=== PATIENT | male | born 1950 | race Caucasian/White ===

== ENCOUNTER → 2017-01-14 | Outpatient (CLI) | payer BC ==
[~2017-01-14] MED LIST: ACET-783 PO; GADOBUTROL 10mMol/10ml INJECTION IV ONE; NORMAL SALINE 50 ML IV ONE; OMEP20TA11 PO; SALINE FLUSH 10ml SYRINGE ONE; [UNRECOGNIZED DRUG - CODE] PO
--- NOTE | 2017-01-15 08:38 | DI ---
Indication: ITS.REASON: K83.0; K51.00 PROCEDURE: MRI ABDOMEN W/WO CONTRAST and MRCP abdomen: Encounter: Initial Comparison: Abdomen MRI dated January 11, 2016 Technique: Multiplanar multisequence MR imaging of the abdomen was performed with and without contrast. Coronal 3-D respiratory gated thick slab T2 MRCP imaging of the biliary tree was also performed with three-dimensional reconstructions. Contrast: 10 mL Gadavist Findings: MRCP: The prior left hepatic bile duct dilatation has improved. No new dilated intra or extrahepatic bile ducts. The stricturing in the bile ducts is less prominent on today's study. No evidence of common duct filling defect or stone. The main pancreatic duct is slightly prominent but unchanged. Abdomen: Liver shows no enhancing mass. Contours normal. Mild residual bile duct dilatation in the lateral left lobe of the liver which is improved from the comparison study. The spleen, pancreas, bilateral adrenals and kidneys are within normal limits. Adrenal glands appear normal. Visualized bowel loops are unremarkable. Impression: MRCP: Interval improvement in the left-sided intrahepatic bile duct dilatation. Changes of PSC are less evident on today's study. 2. MRI abdomen: No acute abnormality seen. .
== END ==
LOC: IMA 18:28
PROVIDERS: ATTEND Nurse Practitioner Adult Health
DX: K83.8 Other specified diseases of biliary tract (principal); K83.0 Cholangitis; K51.00 Ulcerative (chronic) pancolitis without complications
CPT/HCPCS: 74183; A9585; J7050